=== PATIENT | male | born 1945 | race Caucasian/White ===

== ENCOUNTER 2021-03-25 10:34 | Observation (INO) | payer MEDICARE, SELFPAY ==
[2021-03-25] VITALS (17 sets, daily range): BP systolic 123–177; BP diastolic 63–80; PULSE 58–79; RESP 14–22; TEMP 35.8–36.7; O2SAT 95–100; BMI 29.1
--- NOTE | 2021-03-25 10:50 | DI.RAD.S_ITS ---
PROCEDURE: XR CHEST 1V INDICATIONS: chest pain TECHNIQUE: One view of the chest was acquired. COMPARISON: None. FINDINGS: Surgical changes and devices: None. Lungs and pleura: Lungs are clear. No pleural effusions or pneumothorax. Mediastinum: Mediastinal contours appear normal. Heart size is normal. Bones and chest wall: No suspicious bony lesions. Overlying soft tissues appear unremarkable. IMPRESSION: No acute cardiopulmonary disease process. Dictated by: Soledad Álvarez MD, PhD on 03/25/2021 at 10:05 Approved by: Soledad Álvarez MD, PhD on 03/25/2021 at 10:06
--- NOTE | 2021-03-25 11:13 | ED.CHESTPAIN ---
HPI - Chest Pain General Chief Complaint: Chest Pain Stated Complaint: Chest tightness. EMT's on [facility] checked Time Seen by Provider: 03/25/21 10:55 Source: patient Mode of arrival: Ambulatory Limitations: no limitations History of Present Illness HPI narrative: Patient is a 75-year-old male who was sent over from [facility] for evaluation of chest discomfort. He states that over the past couple days he has had occasional left-sided chest discomfort. He describes it as a fullness. It lasts for varying amounts of time. Does not seem to be associated with eating or breathing or palpation. He states that last evening he got the discomfort when he was on his treadmill. He did have to decrease the speed of the treadmill and things seem to improve. He emailed his primary doctor who told him to call 911. He had an EKG performed by the paramedics and was told to come to the emergency department. He is currently asymptomatic but he did have some discomfort when he was walking up the stairs on the [place] in route here to the hospital. He does have a history of high blood pressure. Has never had any heart attacks in the past. Is also a uic-kuzevdn-ggvecuvmc diabetic. Related Data Previous Rx's Medication Instructions Recorded albuterol sulfate 90 mcg/actuation 0 IH SEE INSTRUCTIONS #1 antoine 10/06/16 aerosol inhaler (Proventil HFA) benzonatate 100 mg capsule 100 mg PO Q6HP PRN #30 cap 10/06/16 (Tessalon [place]) cephalexin 500 mg capsule 500 mg PO TID #21 cap 01/16/17 atenolol 100 mg tablet 100 mg PO QDAY #90 tab 01/26/17 clopidogrel 75 mg tablet 75 mg PO QDAY #90 tab 01/26/17 glyburide 2.5 mg tablet 2.5 mg PO SEE INSTRUCTIONS #100 tab 01/26/17 hydrochlorothiazide 25 mg tablet 0 PO SEE INSTRUCTIONS #45 tab 01/26/17 lisinopril 40 mg tablet 40 mg PO SEE INSTRUCTIONS #45 tab 01/26/17 metformin 1,000 mg tablet 1,000 mg PO BIDCC #180 tab 01/26/17 simvastatin 40 mg tablet 40 mg PO HS #90 tab 01/26/17 Allergies Allergy/AdvReac Type Severity Reaction Status Date / Time No Known Drug Allergies Allergy Verified 03/25/21 10:51 Review of Systems Constitutional Constitutional: Reports system reviewed and no additional complaints, except as documented ENT Ears, Nose, Mouth, and Throat: Reports system reviewed and no additional complaints, except as documented Cardiovascular Cardiovascular: Reports as per HPI and Reports system reviewed and no additional complaints, except as documented Respiratory Respiratory: Reports as per HPI and Reports system reviewed and no additional complaints, except as documented Gastrointestinal Gastrointestinal: Reports system reviewed and no additional complaints, except as documented Neurologic Neurologic: Reports system reviewed and no additional complaints, except as documented Hematologic/Lymphatic On Anticoagulants: No Patient History Medical History Diabetes Hypertension Social History (Reviewed 03/25/21 @ 11: by Phillip Lai DO) Smoking Status: Unknown if ever smoked Smoking Status: Unknown if ever smoked alcohol intake frequency: holidays/special occasions only Substance Use Type: does not use Exam Initial Vital Signs Initial Vital Signs: Vital Signs Temperature 98.1 F 03/25/21 10:45 Pulse Rate 72 03/25/21 10:45 Respiratory Rate 14 03/25/21 10:45 Blood Pressure 177/78 H 03/25/21 10:45 Pulse Oximetry 98 03/25/21 10:45 Const General: cooperative, comfortable and well developed Limitations: mental status not altered HENMT Head: normal to inspection and normocephalic Chest Chest: normal inspection of the chest Resp Effort & Inspection: normal respiratory effort Auscultation: clear to auscultation bilaterally Cardio Rate: regular rate Rhythm: regular rhythm GI Inspection: normal to inspection Skin Lesions: no lesions Rashes: no rashes Neuro General: patient alert, patient awake, patient oriented x3 and moves all extremities Extrem General: normal to inspection, capillary refill normal and No edema Psych Appearance: grossly normal and well kempt Scores HEART Score Heart Score history: Moderately Suspicious Heart Score EKG: Normal Heart Score Age: > or = 65 years old Heart Score risk factors: 1-2 risk factors Heart Score troponin: < or = to normal limit Heart Score Total: 4 Course Orders Ordered: ED Orders 03/25/21 10:50 XR chest 1V Stat EKG-12 Lead Stat 03/25/21 11:07 Complete Blood Count AUTO DIFF Stat Comprehensive Metabolic Panel Stat Lipase Stat Troponin & CK Cardiac Panel Stat Discontinued Medications Aspirin (Aspirin 81 Mg Chew Tab) 324 mg PO NOW ONE Stop: 03/25/21 12:49 Last Admin: 03/25/21 12:59 Dose: 324 mg Documented by: HEIKE Vital Signs Vital signs: Vital Signs - 8 hr 03/25/21 10:45 03/25/21 10:47 03/25/21 10:48 Temperature 98.1 F Pulse Rate 72 79 71 Respiratory Rate 14 Blood Pressure 177/78 H 177/78 H Pulse Oximetry 98 98 98 03/25/21 11:00 03/25/21 11:01 Temperature Pulse Rate 64 65 Respiratory Rate 22 19 Blood Pressure 123/67 Pulse Oximetry 99 99 MDM - Chest Pain Lab Data Attestation: I reviewed the patient's lab results. Result diagrams: 03/25/21 11:07 03/25/21 11:07 Labs: Lab Results 03/25/21 03/25/21 Range/Units 11:07 11:07 WBC 6.1 (4.5-11.0) X10^3/uL RBC 4.58 (4.5-5.9) X10^6/uL Hgb 14.3 (13.5-17.5) g/dL Hct 40.4 L (41-53) % MCV 88.3 (80-100) fL MCH 31.2 (26-34) PG MCHC 35.3 (30-36) % RDW 12.7 (11.6-14.8) % Plt Count 219 (150-400) X10^3/uL Neut % (Auto) 66.6 (50-75) % Lymph % (Auto) 19.9 L (25-40) % [place] % (Auto) 9.3 (3-14) % Eos % (Auto) 2.8 (2-4) % Baso % (Auto) 1.4 (0-2) % Neut # (Auto) 4100 (7393-8135) /uL Lymph # (Auto) 1200 (3811-4757) /uL [place] # (Auto) 600 (0-900) /uL Eos # (Auto) 200 (0-450) /uL Baso # (Auto) 100 (0-100) /uL Sodium 133 L (137-145) mmol/L Potassium 3.6 (3.4-5.1) mmol/L Chloride 96 L (98-107) mmol/L Carbon Dioxide 23 (22-32) mmol/L BUN 16 (9-20) mg/dL Creatinine 0.95 (0.66-1.25) mg/dL Estimated GFR > 60.0 (>60) mL/min BUN/Creatinine Ratio 16.8 (6-22) Glucose 99 (80-110) mg/dL Calcium 9.4 (8.4-10.2) mg/dL Total Bilirubin 0.5 (0.2-1.3) mg/dL AST 28 (17-59) IU/L ALT 22 (<50) IU/L Alkaline Phosphatase 70 (38-126) U/L Total Creatine Kinase 81 (55-170) U/L CK-MB (CK-2) TNP CK-MB (CK-2) Rel Index TNP Troponin I 0.026 (0.01-0.034) ng/mL Total Protein 6.7 (6.3-8.2) g/dL Albumin 4.4 (3.5-5.0) g/dL Globulin 2.3 (1.7-4.1) g/dL Albumin/Globulin Ratio 1.9 (1.0-2.8) Lipase 92 (23-300) U/L Imaging Data Chest x-ray: Radiologist's Impression: [place] [id number] XRay Report Signed Patient: Morgan Moffett MR#: [id number] : 1945 Acct:[id number] Age/Sex: 75 / M Date of Service: 03/25/21 Loc: ED Accession Number: [id number] ?? Procedure: XR chest 1V Ordering Provider: Phillip Lai D.O. PROCEDURE:? XR CHEST 1V ? INDICATIONS:? chest pain ? TECHNIQUE:? One view of the chest was acquired.? ? COMPARISON:? None. ? FINDINGS:? ? Surgical changes and devices:? None.? ? Lungs and pleura:? Lungs are clear.? No pleural effusions or pneumothorax.? ? Mediastinum:? Mediastinal contours appear normal.? Heart size is normal.? ? Bones and chest wall:? No suspicious bony lesions.? Overlying soft tissues appear unremarkable.? ? IMPRESSION:? No acute cardiopulmonary disease process. ? ? Dictated by: Soledad Álvarez MD, PhD on 03/25/2021 at 10:05 ? ? Approved by: Soledad Álvarez MD, PhD on 03/25/2021 at 10:06? ECG Data Attestation: I personally reviewed and interpreted this ECG as follows: Interpretation: Sinus rhythm Ventricular rate is 69 Occasional PAC Normal axis Normal QRS Normal QTC No ST T wave changes MDM Narrative Medical decision making narrative: Patient does have a heart score of 4. Is asymptomatic here in the ER. Has a unremarkable EKG. Blood pressure is controlled. He does have a concerning story given the fact that his chest pain is been occurring when he has been walking on the treadmill over the past couple days. Patient has had a stress test in the past but that was almost 2 years ago. Has not had any risk stratification since then. Initial troponin was negative. He was given an aspirin. Discussed the case with Dr. Cifuentes. Will admit for further risk stratification. Discussed this with the patient as well. He expressed understanding and agreement. Discharge Plan Departure Patient Disposition: Admitted as Observation Clinical Impression: Chest pain, Hypertension, Diabetes Admit Date/Time: 03/25/21 13:35 Admit Provider: Mitch Cifuentes
[2021-03-25 11:15] LABS: Add Manual Diff / Slide Review NO; Basophils Absolute Auto 100 /uL (0-100); Basophils Percent Auto 1.4 % (0-2); Eosinophils Absolute Auto 200 /uL (0-450); Eosinophils Percent Auto 2.8 % (2-4); Hematocrit 40.4 % (41-53); Hemoglobin 14.3 g/dL (13.5-17.5); Lymphocytes Absolute Auto 1200 /uL (1100-4500); Lymphocytes Percent Auto 19.9 % (25-40); Mean Corpuscular HGB Conc 35.3 % (30-36); Mean Corpuscular Hemoglobin 31.2 PG (26-34); Mean Corpuscular Volume 88.3 fL (80-100); Monocytes Absolute Auto 600 /uL (0-900); Monocytes Percent Auto 9.3 % (3-14); Neutrophils Absolute Auto 4100 /uL (1500-7000); Neutrophils Percent Auto 66.6 % (50-75); Platelet Count 219 X10^3/uL (150-400); Red Blood Cell Count 4.58 X10^6/uL (4.5-5.9); Red Cell Distribution Width 12.7 % (11.6-14.8); White Blood Cell Count 6.1 X10^3/uL (4.5-11.0)
[2021-03-25 11:28] LABS: Alanine Aminotransferase 22 IU/L (<50); Albumin 4.4 g/dL (3.5-5.0); Albumin Globulin Ratio 1.9 (1.0-2.8); Alkaline Phosphatase 70 U/L (38-126); Aspartate Aminotransferase 28 IU/L (17-59); BUN Creatinine Ratio 16.8 (6-22); Bilirubin Total 0.5 mg/dL (0.2-1.3); Blood Urea Nitrogen 16 mg/dL (9-20); Calcium 9.4 mg/dL (8.4-10.2); Carbon Dioxide 23 mmol/L (22-32); Chloride 96 mmol/L (98-107); Creatine Kinase 81 U/L (55-170); Estimated Glomerular Filt Rate > 60.0 mL/min (>60); Globulin 2.3 g/dL (1.7-4.1); Glucose 99 mg/dL (80-110); HEMOLYSIS < 15 (0-50); Lipase 92 U/L (23-300); Potassium 3.6 mmol/L (3.4-5.1); Sodium 133 mmol/L (137-145); Total Protein 6.7 g/dL (6.3-8.2)
[2021-03-25 11:38] LABS: Troponin I 0.026 ng/mL (0.01-0.034)
[2021-03-25] MEDS: ASPIRIN 81 MG CHEW TAB 324 MG PO (12:59)
--- NOTE | 2021-03-25 13:51 | PC.NURSE ---
Report called to MEGHA Alexis
[2021-03-25 14:41] LABS: COVID19 -Nasal RAPID Negative (Negative)
--- NOTE | 2021-03-25 14:47 | DI.ECHO.S_ITS ---
[facility] +---------+ : : [address] : : : : [id number] : : : : Phone: [phone]+ Echocardiogram Report + + :Name: ALBERTO LEVI Study Date: 03/26/2021 Height: 65 in : :[facility] ReadingLocation: Weight: 175 lb : : Gender: Male BSA: 1.9 m2 : :: 1945 Age: 75 yrs BP: 161/77 mmHg: :Reason For Study: CP : : Performed By: Darci Tello : :Referring: COY TOLENTINO : + + Interpretation Summary Sinus rhythm with heart rate 52-57 bpm. Normal LV size and wall thickness; normal wall motion and LV systolic function. EF is 60-65%. Normal chamber sizes. Severe MAC with trace associated mitral regurgitation. Otherwise no significant valvular abnormalities. No prior study available for comparison. Procedure: A two-dimensional transthoracic echocardiogram with color flow and Doppler was performed. The study quality was technically good. There is no prior echocardiogram noted for this patient. The patient was in normal sinus rhythm during the exam. Left Ventricle: The left ventricle is normal in size. There is normal left ventricular wall thickness. The ejection fraction is estimated to be 60-65%. There are no focal wall motion abnormalities. Diastolic parameters suggest a relaxation abnormality of the left ventricle, consistent with probable normal filling pressures. Right Ventricle: The right ventricle is normal in size and function. Atria: Both atria are normal in size. There is no Doppler evidence for an atrial septal defect. Mitral Valve: There is moderate to severe mitral annular calcification. There is trace mitral regurgitation. Aortic Valve: The aortic valve is trileaflet. The aortic valve opens well. There is trace aortic regurgitation. Tricuspid Valve: The tricuspid valve is normal in structure and function. No tricuspid regurgitation. Pulmonary artery pressures cannot be estimated because of the lack of a measurable TR jet velocity but the IVC suggests a CVP of around 3 mmHg. Pulmonic Valve: The pulmonic valve is normal in structure and function. There is trace pulmonic regurgitation. Great Vessels: The aortic root is normal size. The dimensions of the ascending aorta are normal. The pulmonary artery is normal size. The IVC is of normal diameter and collapses greater than 50% with a sniff. This suggests a low right atrial pressure of 3 mm Hg. Pericardium/ Pleura There is no pericardial effusion. There is no pleural effusion. MMode/2D Measurements & Calculations LVIDd: 5.1 cm LVOT diam: 2.0 cm LVIDs: 3.3 cm Ao root diam: 2.9 cm FS: 36.0 % asc Aorta Diam: 3.0 cm EPSS: 0.39 cm Ao Arch Diam (Prox Trans): 2.2 cm IVSd: 0.56 cm LVPWd: 0.82 cm LV rashid. diameter/BSA (cm/m^2): 2.7 LV sys. diameter/BSA (cm/m^2): 1.8 LA dimension: 3.8 cm RA long axis: 5.1 cm LA A2 area: 21.3 cm2 RA area: 12.0 cm2 LA A4 area: 18.9 cm2 RA vol: 24.1 ml LA length (vol): 5.5 cm RA : 12.9 ml/m2 LA vol: 62.4 ml IVC diam: 1.2 cm LA vol index: 33.4 ml/m2 TAPSE: 1.9 cm Doppler Measurements & Calculations Ao V2 max: 119.4 cm/sec LVOT Max Jhon: 83.9 cm/sec Ao V2 mean: 90.4 cm/sec LV V1 max P.8 mmHg Ao max P.7 mmHg LV V1 VTI: 23.2 cm Ao mean P.5 mmHg FARRAH(I,D): 2.4 cm2 Ao V2 VTI: 28.6 cm FARRAH(V,D): 2.1 cm2 sev ratio: 0.81 FARRAH indexed to BSA (cm^2/m^2): 1.3 MV E max jhon: 69.6 cm/sec PA V2 max: 81.0 cm/sec MV A max jhon: 103.2 cm/sec PA V2 mean: 60.5 cm/sec MV E/A: 0.67 PA mean P.6 mmHg Med Peak E' Jhon: 5.0 cm/sec PA pr(Accel): 25.9 mmHg E/E' med: 13.9 Lat Peak E' Jhon: 5.6 cm/sec E/E' lat: 12.5 E/e' average: 13.2 MV dec time: 0.26 sec SV(LVOT): 69.4 ml Electronically signed by: Brooke Rader M.D. on Reading Physician:03/26/2021 06:02 PM
--- NOTE | 2021-03-25 14:48 | DI.NM.S_ITS ---
PROCEDURE: NM WILLIAM PERF SPECT SINGLE STUDY Exercise myocardial perfusion SPECT with gated imaging and ejection fraction RADIOPHARMACEUTICAL: 24.0 mCi Tc-99m sestamibi IV after peak exercise with vasodilator stress. INDICATIONS: chest pain TECHNIQUE: Radiopharmaceutical was injected after peak stress test which demonstrated blunted heart rate response to exercise so the test was converted to a pharmacologic vasodilator stress test. SPECT images were obtained, with perfusion images in short axis, horizontal long axis, and vertical long axis views. Gated images were reviewed using Filtec software. COMPARISON: None. CARDIAC STRESS: A standard Alex treadmill exercise tolerance test was performed by the patient under the supervision of an attending staff. The patient exercised for 7 minutes, 0 seconds; 7.8 METS; functional aerobic impairment (SIVA) is -21%. Hemodynamic data: There is normal blood pressure and heart response to exercise. Patient achieved 66% of maximum predicted heart rate at which point the test was switched to a pharmacologic nuclear stress test and the patient was given regadenoson. Symptoms: Patient denied anginal chest pain during exercise. EK mm ST segment depressions leads II, III, aVF and V4 through V6 with exercise that continued after vasodilator stress testing. FINDINGS: Raw data: There is good labeling of myocardium by radiotracer. No significant motion artifacts. Yqbi-zx-ghadn ratio is 0.27 (normal is less than 0.38 for sestamibi tracer, and less than 0.50 for thallium tracer). Left ventricular function: Gated images demonstrate normal left ventricle wall thickening. No segmental wall motion abnormalities. Left ventricle end diastolic volume is 77 mL. Left ventricle stress ejection fraction is 66%; normal values are above 45%. Myocardial perfusion: There is a medium size, moderate to severe intensity basal to mid inferior wall defect with evidence of hypokinesis on gated images. IMPRESSION: 1. Abnormal exercise stress test, converted to pharmacologic vasodilator stress test due to blunted heart rate response to exercise. 2. Exercise and vasodilator stress ECG demonstrates ST segment depressions in multiple leads consistent with inducible ischemia. 3. The SPECT images are concerning for inferior wall ischemia with associated hypokinesis in this area on the gated images. Results of the test were discussed with the ordering provider on the day the test was performed. Dictated by: Che Joyce D.O. on 03/29/2021 at 16:10 Approved by: Che Joyce M.D. on 03/29/2021 at 16:19
[2021-03-25] MEDS: INSULIN LISPRO 100 UNIT/ML 3ML VIAL SUBCUT (16:48)
[2021-03-25] MEDS: METFORMIN HCL 500 MG TABLET 1000 MG PO (16:51)
--- NOTE | 2021-03-25 17:00 | PM.HP.1 ---
History of Present Illness History of Present Illness Date Patient Seen: 03/25/21 Time Patient Seen: 17:00 Chief complaint: Chest tightness. EMT's on [place] wants checked Narrative: This is a 75-year-old male with a past medical history of prior stroke with no residual deficits after tPA administration, type 2 diabetes, hypertension, and prostate cancer who presented with chest tightness worsening over the past week. Patient states that a week ago he received a flu shot and his 3rd Moderna COVID-19 booster. Shortly after this he felt some mild tightness near his lower sternum. The following day he noticed some bilateral arm pain and weakness but had no further symptoms. He began to have paroxysms of chest tightness and fullness that lasted for varying amounts of time from a few minutes to a few hours. These do not seem to be associated with exertion, or eating. He has noticed for the past few months that when he quickly ramps up on his treadmill he gets short of breath but if he gradually increases his activity level slowly he is able to walk without any symptoms. Last night he experienced about 15 minutes of tightness, he emailed his primary care provider who recommended that he call EMS and EMS recommended that he come here for further evaluation. He has no current symptoms at this time. He has not tried any medications to see if they help. He denies any palpitations. During his symptoms he seems to be quite hypertensive with systolic blood pressures of greater than 200 at home. Without symptoms his blood pressure is normal. He denies any recent fevers, or chills. He has no rashes, or vision changes. In the emergency room, the patient was mildly hypertensive but the remainder of his vital signs were unremarkable. Initial laboratory evaluation revealed an unremarkable CBC, sodium of 133, but the remainder of his chemistries are unremarkable. Troponin was within normal limits at 0.0-6. EKG showed sinus rhythm without evidence of acute ischemia and was unchanged compared to prior tracings. COVID-19 testing was negative. His chest x-ray was unremarkable. Patient's HEART score was 4. He was admitted for further evaluation and ACS rule out. Patient History Medical History (Updated 03/25/21 @ 17:01 by Mitch Cifuentes DO) CVA (cerebral vascular accident) Diabetes Hypertension Prostate cancer Surgical History (Updated 03/25/21 @ 17:01 by Mitch Cifuentes DO) History of prostatectomy Family & Social History Family History (Updated 03/25/21 @ 17:02 by Mitch Cifuentes DO) Father CAD (coronary artery disease) Brother CAD (coronary artery disease) Other Diabetes mellitus Social History: household members spouse Prior Living Arrangements House Safety & Behavioral: Feels Safe in Current Yes Environment Been Physically Hurt or No Threatened By a Person Suicidal Ideation Description None Suicide Plan Description No Plan Tobacco & Substance use: Smoking Status Never smoker alcohol intake current alcohol intake frequency holiday/special occasion Substance Use Type does not use Meds Home Medications and Allergies Home Medications Medication Instructions Recorded Confirmed Type atenolol 100 mg tablet 100 mg PO QDAY #90 tab 01/26/17 03/25/21 Rx clopidogrel 75 mg tablet 75 mg PO QDAY #90 tab 01/26/17 03/25/21 Rx simvastatin 40 mg tablet 40 mg PO HS #90 tab 01/26/17 03/25/21 Rx amlodipine 5 mg tablet 5 mg PO DAILY 03/25/21 03/25/21 History clopidogrel 75 mg tablet 75 mg PO DAILY 03/25/21 03/25/21 History glyburide 2.5 mg tablet 20 mg PO SEE INSTRUCTIONS 03/25/21 03/25/21 History hydrochlorothiazide 25 mg tablet 12.5 mg PO DAILY 03/25/21 03/25/21 History metformin 1,000 mg tablet 1,000 mg PO BIDCC 03/25/21 03/25/21 History Allergies Allergy/AdvReac Type Severity Reaction Status Date / Time No Known Drug Allergies Allergy Verified 03/25/21 10:51 Review of Systems Review of Systems Narrative: All other systems reviewed with the patient and are negative unless otherwise stated. Exam Vital Signs (past 8 hours): - 03/25/21 10:45 03/25/21 10:47 03/25/21 10:48 Temperature 98.1 F Pulse Rate 72 79 71 Respiratory Rate 14 Blood Pressure 177/78 H 177/78 H Pulse Oximetry 98 98 98 03/25/21 11:00 03/25/21 11:01 03/25/21 11:30 Temperature Pulse Rate 64 65 67 Respiratory Rate 22 19 18 Blood Pressure 123/67 Pulse Oximetry 99 99 98 03/25/21 11:31 03/25/21 11:53 03/25/21 12:00 Temperature Pulse Rate 67 65 62 Respiratory Rate 18 19 16 Blood Pressure 128/63 139/70 128/71 Pulse Oximetry 98 98 95 03/25/21 12:30 03/25/21 13:00 03/25/21 13:30 Temperature Pulse Rate 60 62 60 Respiratory Rate 16 21 19 Blood Pressure 133/64 155/80 H 161/77 H Pulse Oximetry 96 98 100 03/25/21 14:00 03/25/21 15:30 Temperature 96.4 F L Pulse Rate 58 L Respiratory Rate 18 Blood Pressure 151/74 H Pulse Oximetry 99 98 Oxygen Delivery Method Room Air Oxygen Flow Rate 0 Narrative Exam Narrative: GENERAL APPEARANCE: Well developed, well nourished, in no acute distress. SKIN: Inspection of the skin reveals no rashes, ulcerations or petechiae. HEENT: Normocephalic atraumatic, extraocular muscles are intact, oropharynx is clear and mucous membranes are moist, neck is supple without adenopathy NECK: Supple and symmetric. No tenderness. CHEST: Normal AP diameter and normal contour without any kyphoscoliosis. LUNGS: Auscultation of the lungs revealed no wheezes, rhonchi, or rales. CARDIOVASCULAR: There was a regular rate and rhythm without any murmurs, gallops, rubs. Peripheral pulses were 2+ and symmetric. ABDOMEN: Soft, nontender, and nondistended. MUSCULOSKELETAL: There was no tenderness or effusions noted. Muscle strength and tone were normal. EXTREMITIES: No cyanosis, clubbing or edema. NEUROLOGIC: Alert and oriented x 3. Normal affect. Strength is +5/5 in the Upper Extremities and Lower Extremities Bilaterally. Sensation to touch was normal. Objective Labs Result Diagrams: 03/25/21 11:07 03/25/21 11:07 Labs: Laboratory Results - last 24 hr 03/25/21 03/25/21 03/25/21 11:07 11:07 14:05 WBC 6.1 RBC 4.58 Hgb 14.3 Hct 40.4 L MCV 88.3 MCH 31.2 MCHC 35.3 RDW 12.7 Plt Count 219 Neut % (Auto) 66.6 Lymph % (Auto) 19.9 L Bertie % (Auto) 9.3 Eos % (Auto) 2.8 Baso % (Auto) 1.4 Neut # (Auto) 4100 Lymph # (Auto) 1200 Bertie # (Auto) 600 Eos # (Auto) 200 Baso # (Auto) 100 Sodium 133 L Potassium 3.6 Chloride 96 L Carbon Dioxide 23 BUN 16 Creatinine 0.95 Estimated GFR > 60.0 BUN/Creatinine Ratio 16.8 Glucose 99 Calcium 9.4 Total Bilirubin 0.5 AST 28 ALT 22 Alkaline Phosphatase 70 Total Creatine Kinase 81 CK-MB (CK-2) TNP CK-MB (CK-2) Rel Index TNP Troponin I 0.026 Total Protein 6.7 Albumin 4.4 Globulin 2.3 Albumin/Globulin Ratio 1.9 Lipase 92 SARS-CoV-2 (PCR) Negative Assessment & Plan Assessment & Plan narrative: This is a 75-year-old male with a past medical history of prior stroke with no residual deficits after tPA administration, type 2 diabetes, hypertension, and prostate cancer who presented with chest tightness worsening over the past week. 1. chest tightness, acute, not present on admission - Differential includes ACS (less likely), pericarditis (given recent COVID moderna booster 1 week ago), stable angina, gerd, hypertensive disease, amongst others. - check TTE, stress testing given HEART score of 4. - if symptoms recur, trial ibuprofen 800 mg to see if improvement given possible pericarditis. - patient on plavix and statin for prior CVA, will continue with formulary replacement for statin. - check 8 hour troponin. 2. HTN, acute on chronic - continue home medications, may need adjustments. Hold atenolol prior to stress testing. 3. prior CVA - no residual deficits. Was given tPA. Continue home plavix and replace home statin with formulary. 4. type 2 diabetes - can continue home metformin, check a1c, and add sliding scale insulin. code: Full, surrogate is gerard DVT: Low risk Dispo: Admit under observation. I have utilized all available immediate resources to obtain, update, or review the patient's current medications. Time Spent With Patient Critical Care time: I spent a total of [] minutes of critical care time on this patient's care today; this time is exclusive of procedural time. Quality VTE Deep Vein Thrombosis/Pulmonary Embolism Present on Admission: No MIPS - Admit I confirm the patient?s Advance Care Plan is present, Code status is documented, Surrogate decision maker is in patient?s record [If Yes, STOP here]: Yes
[2021-03-25 19:34] LABS: Troponin I 0.021 ng/mL (0.01-0.034)
[2021-03-25] MEDS: IBUPROFEN 400 MG TABLET 800 MG PO (21:30)
[2021-03-25] MEDS: SODIUM CHLORIDE 0.9% FLUSH 10 ML IV (21:31)
[2021-03-26] VITALS (9 sets, daily range): BP systolic 114–137; BP diastolic 54–67; PULSE 54–68; RESP 16; TEMP 36.3–36.6; O2SAT 94–100
[2021-03-26] MEDS: IBUPROFEN 400 MG TABLET 800 MG PO ×2 (05:38→15:14)
[2021-03-26 05:45] LABS: BUN Creatinine Ratio 19.8 (6-22); Blood Urea Nitrogen 22 mg/dL (9-20); Calcium 8.8 mg/dL (8.4-10.2); Carbon Dioxide 31 mmol/L (22-32); Chloride 97 mmol/L (98-107); Cholesterol 93 mg/dL (140-199); Estimated Glomerular Filt Rate > 60.0 mL/min (>60); Glucose 108 mg/dL (80-110); HDL Cholesterol 30 mg/dL (40-60); HEMOLYSIS < 15 (0-50); LDL Cholesterol Calculated 43 mg/dL (<100); Magnesium 1.9 mg/dL (1.6-2.3); Potassium 3.7 mmol/L (3.4-5.1); Sodium 133 mmol/L (137-145); Triglycerides 98 mg/dL (35-150)
[2021-03-26 05:50] LABS: Hematocrit 39.9 % (41-53); Hemoglobin 13.7 g/dL (13.5-17.5); Mean Corpuscular HGB Conc 34.3 % (30-36); Mean Corpuscular Hemoglobin 30.8 PG (26-34); Mean Corpuscular Volume 89.7 fL (80-100); Platelet Count 202 X10^3/uL (150-400); Red Blood Cell Count 4.44 X10^6/uL (4.5-5.9); Red Cell Distribution Width 12.6 % (11.6-14.8); White Blood Cell Count 6.3 X10^3/uL (4.5-11.0)
[2021-03-26 05:51] LABS: Add Manual Diff / Slide Review YES
[2021-03-26 06:03] LABS: Hemoglobin A1C% w Est Avg Glu 6.5 % (4.0-6.0)
[2021-03-26 06:47] LABS: TSH w/ Reflex to FT4 1.82 uIU/mL (0.47-4.68)
[2021-03-26 06:52] LABS: Neutrophils Absolute Manual 2835 /uL (3000-5900); Total Cells Counted 100
[2021-03-26 06:53] LABS: RBC Morphology Normal Morphology
--- NOTE | 2021-03-26 09:09 | CM.DANOTE ---
DCP: Case received, EMR reviewed and met with patient. Introduced self and role. Was able to obtain information regarding patient's baseline activity status prior to hospitalization. DCP assessment completed with information currently available. Patient is a 75 year old male who admitted yesterday afternoon to the care of the hospitalist team. PCP: Dr. Arambula. Payer: confirmed: [facility]. Patient came to the hospital via private vehicle, per the advice of EMT, for chest heaviness. Patient lives on [facility], and he had called his primary MD with his symptoms. He was encouraged to call 911, and the medics did an EKG. He was deemed stable, but encouraged to go to [facility] for eval. Patient is here for cardiac work up, and may be getting a stress test today. He also has history of diabetes type 2. Met with patient in his room. He is alert and oriented. He resides on [facility] with his spouse, Loni. He is hoping he can go home after his tests, if they are ok. He is independent at his baseline. He wants to use [employer] taxi to the [place], so his [place] have [place] over. P: DCP to continue to follow. Patient should be able to go home when he is deemed medically stable. Stephanie Bowers RN/Inspector Of Dredging Discharge Planning/Care Management CM Discharge Assessment Start: 03/26/21 09:08 Freq: Status: Active Protocol: Document 03/26/21 09:08 (Rec: 03/26/21 09:09 [id number]) Discharge Planning Assessment Assigned Arm Rest Builder Stephanie Bowers RN/Inspector Of Dredging Advance Directives? No History Provided By Patient,Medical Record Prior Living Arrangements House Household Members spouse Type of transporation used prior to Drives own vehicle admit Independent with ADL's Yes Is patient alert and oriented? Yes Caregiver for Another No Barriers to Discharge No Discharge Plan Home Transportation Arrangement Patient wishes to take [employer] taxi to [place]. Referrals Initiated None needed Whiteboard Updated in Patient Room with Yes name and ext. # of Arm Rest Builder Review Status In Process Next Review Type Continued Stay Review
[2021-03-26] MEDS: CLOPIDOGREL 75 MG TABLET PO (09:22)
[2021-03-26] MEDS: hydroCHLOROthiazide 25 MG TABLET 12.5 MG PO (09:22)
[2021-03-26] MEDS: METFORMIN HCL 500 MG TABLET 1000 MG PO (09:22)
[2021-03-26] MEDS: AMLODIPINE 5 MG TABLET PO (09:22)
[2021-03-26] MEDS: SODIUM CHLORIDE 0.9% FLUSH 10 ML IV (09:23)
--- NOTE | 2021-03-26 12:15 | PC.NURSE ---
Day shift: Dr Cifuentes informed of Pt's BG of 44 at thist caty. Gave Pt juice and he is drinking it. Will recheck BG at 1230.
--- NOTE | 2021-03-26 12:16 | PC.NURSE ---
Notified RN of Low CBG. Provided patient with [employer] Juice. Will re-check CBG @ 12:30
--- NOTE | 2021-03-26 13:08 | PC.NURSE ---
Day shift: Pt off unit for stress test at approx 1300. He is OFF AC unit tele at this time as well. Lat BG 88 and DI RN has been made aware. He remains asymptomatic.
--- NOTE | 2021-03-26 14:20 | PC.NURSE ---
Day shift: Pt remains not on AC unit at this time 1420.
--- NOTE | 2021-03-26 14:55 | PC.NURSE ---
Day shift: Pt back on AC unit at approx 1450. He denies any chest pain, pain, or nausea at this time. Eating lunch w/ no complaints. Call light in reach. Placed back on tele.
--- NOTE | 2021-03-26 16:50 | PM.DS.1 ---
History of Present Illness History of Present Illness Date Patient Seen: 03/26/21 Time Patient Seen: 16:50 Chief complaint: Chest tightness. EMT's on [place] wants checked Narrative: This is a 75-year-old male with a past medical history of prior stroke with no residual deficits after tPA administration, type 2 diabetes, hypertension, and prostate cancer who presented with chest tightness worsening over the past week. Patient states that a week ago he received a flu shot and his 3rd Moderna COVID-19 booster. Shortly after this he felt some mild tightness near his lower sternum. The following day he noticed some bilateral arm pain and weakness but had no further symptoms. He began to have paroxysms of chest tightness and fullness that lasted for varying amounts of time from a few minutes to a few hours. These do not seem to be associated with exertion, or eating. He has noticed for the past few months that when he quickly ramps up on his treadmill he gets short of breath but if he gradually increases his activity level slowly he is able to walk without any symptoms. Last night he experienced about 15 minutes of tightness, he emailed his primary care provider who recommended that he call EMS and EMS recommended that he come here for further evaluation. He has no current symptoms at this time. He has not tried any medications to see if they help. He denies any palpitations. During his symptoms he seems to be quite hypertensive with systolic blood pressures of greater than 200 at home. Without symptoms his blood pressure is normal. He denies any recent fevers, or chills. He has no rashes, or vision changes. In the emergency room, the patient was mildly hypertensive but the remainder of his vital signs were unremarkable. Initial laboratory evaluation revealed an unremarkable CBC, sodium of 133, but the remainder of his chemistries are unremarkable. Troponin was within normal limits at 0.0-6. EKG showed sinus rhythm without evidence of acute ischemia and was unchanged compared to prior tracings. COVID-19 testing was negative. His chest x-ray was unremarkable. Patient's HEART score was 4. He was admitted for further evaluation and ACS rule out. Discharge Providers Provider Date of admission: 03/25/21 13:35 Discharge Date: 03/26/21 Discharge provider: Mitch Cifuentes DO Summary Hospital Course Discharge Diagnosis: Please see hospital course by problem list noted below. Hospital Course: This is a 75-year-old male with a past medical history of prior stroke with no residual deficits after tPA administration, type 2 diabetes, hypertension, and prostate cancer who presented with chest tightness worsening over the past week. 1. Stable angina ? - patient presented with intermittent chest pain. Had chest pain during his nuclear stress testing and required nitroglycerin. Echocardiogram was unremarkable without wall motion abnormalities. - initial stress phase of stress testing was notable for inferior abnormalities. - discussed with cardiology and given negative troponins, nuclear testing unavailable over the weekend, no current bed availability throughout the state, the patient is stable for outpatient follow up with planned resting scan on monday. He will then need further referral from his PCP depending on final results. - patient already on plavix, and statin therapy from his prior CVA. - TG 98, LDL 43, HDL 30. TSH 1.82. A1c 6.5%. 2. HTN, acute on chronic ?- no current changes recommended for his stress test. 3. prior CVA ?- no residual deficits. Was given tPA. Continue home plavix and replace home statin with formulary. 4. type 2 diabetes - no medication changes recommended. A1c with good control at 6.5% Exam Vital Signs (past 8 hours): - 03/26/21 10:34 03/26/21 12:00 03/26/21 12:16 Temperature 97.5 F L Pulse Rate 64 Respiratory Rate 16 Blood Pressure 124/54 L Pulse Oximetry 97 98 97 03/26/21 15:46 Temperature Pulse Rate Respiratory Rate Blood Pressure Pulse Oximetry 97 Oxygen Delivery Method Room Air Oxygen Flow Rate 0 Narrative Exam Narrative: GENERAL APPEARANCE: Well developed, well nourished, in no acute distress. SKIN: Inspection of the skin reveals no rashes, ulcerations or petechiae. HEENT:? Normocephalic atraumatic, extraocular muscles are intact, oropharynx is clear and mucous membranes are moist, neck is supple without adenopathy NECK: Supple and symmetric.? No tenderness. CHEST: Normal AP diameter and normal contour without any kyphoscoliosis. LUNGS: Auscultation of the lungs revealed no wheezes, rhonchi, or rales. CARDIOVASCULAR: There was a regular rate and rhythm without any murmurs, gallops, rubs. Peripheral pulses were 2+ and symmetric. ABDOMEN:? Soft, nontender, and nondistended. MUSCULOSKELETAL: There was no tenderness or effusions noted. Muscle strength and tone were normal. EXTREMITIES: No cyanosis, clubbing or edema. NEUROLOGIC: Alert and oriented x 3. Normal affect. Strength is +5/5 in the Upper Extremities and Lower Extremities Bilaterally. Sensation to touch was normal. Objective Labs Result Diagrams: 03/26/21 04:46 03/26/21 04:46 Labs: Laboratory Results - last 24 hr 03/25/21 03/26/21 03/26/21 19:06 04:46 04:46 WBC 6.3 RBC 4.44 L Hgb 13.7 Hct 39.9 L MCV 89.7 MCH 30.8 MCHC 34.3 RDW 12.6 Plt Count 202 Neut % (Auto) Not Reportable Lymph % (Auto) Not Reportable [place] % (Auto) Not Reportable Eos % (Auto) Not Reportable Baso % (Auto) Not Reportable Lymph # (Auto) Not Reportable [place] # (Auto) Not Reportable Baso # (Auto) Not Reportable Total Counted 100 Seg Neutrophils % 44.0 Band Neutrophils % 1.0 L Lymphocytes % (Manual) 41.0 Atypical Lymphs % 4.0 H Monocytes % (Manual) 5.0 Eosinophils % (Manual) 4.0 Basophils % (Manual) 1.0 Neutrophils # (Manual) 2835 L RBC Morphology Normal morphology Sodium 133 L Potassium 3.7 Chloride 97 L Carbon Dioxide 31 BUN 22 H Creatinine 1.11 Estimated GFR > 60.0 BUN/Creatinine Ratio 19.8 Glucose 108 Hemoglobin A1c Calcium 8.8 Magnesium 1.9 Troponin I 0.021 Triglycerides 98 Cholesterol 93 L LDL Cholesterol, Calc 43 HDL Cholesterol 30 L TSH 03/26/21 03/26/21 04:46 04:46 WBC RBC Hgb Hct MCV MCH MCHC RDW Plt Count Neut % (Auto) Lymph % (Auto) [place] % (Auto) Eos % (Auto) Baso % (Auto) Lymph # (Auto) [place] # (Auto) Baso # (Auto) Total Counted Seg Neutrophils % Band Neutrophils % Lymphocytes % (Manual) Atypical Lymphs % Monocytes % (Manual) Eosinophils % (Manual) Basophils % (Manual) Neutrophils # (Manual) RBC Morphology Sodium Potassium Chloride Carbon Dioxide BUN Creatinine Estimated GFR BUN/Creatinine Ratio Glucose Hemoglobin A1c 6.5 H Calcium Magnesium Troponin I Triglycerides Cholesterol LDL Cholesterol, Calc HDL Cholesterol TSH 1.82 [facility] Medical History (Updated 03/25/21 @ 17:01 by Mitch Cifuentes DO) CVA (cerebral vascular accident) Diabetes Hypertension Prostate cancer Surgical History (Updated 03/25/21 @ 17:01 by Mitch Cifuentes DO) History of prostatectomy Family History (Updated 03/25/21 @ 17:02 by Mitch Cifuentes DO) Father CAD (coronary artery disease) Brother CAD (coronary artery disease) Other Diabetes mellitus Social History household members: spouse Smoking Status: Never smoker alcohol intake: current Discharge Plan Discharge Plan Patient Disposition: Home Provider Discharge Comment: You were admitted to the hospital with chest pain. This is likely from your heart. You have another portion of your stress testing on Monday, please obtain that portion and plan will be to follow up with your PCP. If you have chest pain that will not go away please return to an emergency room. Discharge orders & Medications Prescriptions: Continued atenolol 100 MG tablet 100 mg PO QDAY Qty: 90 RF: 3 clopidogrel 75 MG tablet 75 mg PO QDAY Qty: 90 RF: 3 simvastatin 40 MG tablet 40 mg PO HS Qty: 90 RF: 3 glyburide 2.5 MG tablet 20 mg PO SEE INSTRUCTIONS RF: 0 metformin 1,000 MG tablet 1,000 mg PO BIDCC RF: 0 hydrochlorothiazide 25 MG tablet 12.5 mg PO DAILY RF: 0 amlodipine 5 mg tablet 5 mg PO DAILY RF: 0 clopidogrel 75 mg tablet 75 mg PO DAILY RF: 0 Diet/Activity/Treatments Diet: Diet as Tolerated and Low-sodium Activity: As tolerated Visit Report/Discharge Packet Instructions: Echocardiogram, Cardiac Stress Test, DI for Cardiac Stress Test Discharge Data Attending Provider: Mitch Cifuentes VTE Deep Vein Thrombosis/Pulmonary Embolism Present on Admission: No
--- NOTE | 2021-03-26 17:52 | PC.NURSE ---
Day shift: Pt left unit at 1740. He wanted to walk and has been steady on his feet. Paperwork signed and all questions answered. He denied any chest pain after returning from stress test. He has all personal belongings and is aware of what he needs to do in term of f/u with MD. [facility] is [facility] [place] [facility] [address] [facility] He stated I'm happy to be going [facility]. MEGHA Smith went over the d/c paperwork prior to d/c today.
== END 2021-03-26 17:54 | disposition home or self-care (01) ==
LOC: ED 12:51 → AC 13:36
PROVIDERS: Admitting Provider Internal Medicine; Emergency Provider Emergency Medicine; Family Provider Family Medicine; Referring Provider Emergency Medicine; Visit Provider Internal Medicine
DX: I20.8 Other forms of angina pectoris (principal); I10 Essential (primary) hypertension; Z86.73 Personal history of transient ischemic attack (TIA), and cerebral infarction without residual deficits; E11.9 Type 2 diabetes mellitus without complications; Z79.84 Long term (current) use of oral hypoglycemic drugs; Z20.822 Contact with and (suspected) exposure to COVID-19; Z85.46 Personal history of malignant neoplasm of prostate
CPT/HCPCS: 36415; 71045; 78451; 80048; 80053; 80061; 82550; 82962; 83036; 83690; 83735; 84443; 84484; 85007; 85025; 87635; 93005; 93010; 93017; 93306; 94760; 99284; C9803; G0378; A9502; J1815; J2785